=== PATIENT | male | born 1960 | race Caucasian/White ===

== ENCOUNTER 2018-02-19 11:15 | Emergency (ER) | payer MEDICAID ==
[2018-02-19 11:25] VITALS: O2SAT 97
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
[2018-02-19 12:51] VITALS: BP 101/70; PULSE 99; RESP 18; TEMP 99
--- NOTE | 2018-02-21 21:11 | CARD ---
APPROVED REPORT EKG Measurement Heart [id number] <Conclusion> Sinus tachycardia Indeterminate axis Inferior infarct, age undetermined Abnormal ECG
== END 2018-02-19 12:48 | disposition home or self-care (01) ==
LOC: C.ER 11:15
DX: F43.9 Reaction to severe stress, unspecified (principal)